=== PATIENT | male | born 1960 | race Caucasian/White ===

== ENCOUNTER → 2021-05-17 | Outpatient (CLI) | payer OTHER ==
--- NOTE | 2021-05-17 09:09 | PFTRPT ---
Height: 70.50 Inches Weight: 175.00 Lbs BSA: 1.98 Diagnosis: J44.9 DATE: 05/17/2021 ORDERING PHYSICIAN: Bethany Sandy NP Pre and post bronchodilator studies have excellent technical quality. Forced vital capacity is reduced. FEV1 is out of proportion. Obstructive index is therefore reduced. Expiratory limit of the flow-volume loop suggests a very significant flow rate limitation. Favorable bronchodilator response is identified. IMPRESSION: Moderate obstructive ventilatory impairment with bronchodilator response. Please correlate clinically. MTDD
== END ==
LOC: M CARPUL 08:21
PROVIDERS: ATTEND Nurse Practitioner Adult Health
DX: J44.9 Chronic obstructive pulmonary disease, unspecified (principal)